=== PATIENT | female | born 1965 ===

== ENCOUNTER 2024-12-11 12:04 | Emergency (ER) | payer MEDICAID, SELFPAY ==
--- NOTE | ~2024-12-11 | XR_ITS ---
EXAMINATION: XR CHEST CLINICAL INFORMATION: Pneumonia? Coughing COMPARISON: None available. TECHNIQUE: PA view of the chest was obtained. FINDINGS: The cardiac, hilar, and mediastinal contours are normal. The lungs are clear bilaterally. No pneumothorax or effusion. No focal osseous or soft tissue abnormality. XR/XR chest 1V IMPRESSION: No active pulmonary disease. Electronically signed by: Rafael Coates MD 12/11/2024 01:46 PM EDT
[2024-12-11 13:05] VITALS: BP 137/72; PULSE 100; RESP 18; TEMP 37; O2SAT 99; BMI 28.8
--- NOTE | 2024-12-11 13:15 | ECG_ITS ---
Test Reason : SOB Blood Pressure : */* mmHG Vent. Rate : 96 BPM Atrial Rate : 96 BPM P-R Int : 148 ms QRS Dur : 72 ms QT Int : 360 ms P-R-T Axes : 45 44 32 degrees QTcB Int : 454 ms Normal sinus rhythm Nonspecific ST abnormality Abnormal ECG No previous ECGs available Referred By: Scott Lucas Electronically Signed By: DOMINIC ALEXANDRE MD
--- NOTE | 2024-12-11 13:16 | ED.GENADULT ---
HPI - General Adult General Chief complaint: Upper Respiratory Symptoms Stated complaint: SOB, asthma Time Seen by Provider: 12/11/24 14:30 Source: patient Mode of arrival: ambulatory Limitations: no limitations History of Present Illness ED Provider: nahid Lucas [facility] narrative: 59 yold female with pmh of asthma presents to the ED for coughing brown green phelghm, bodyaches, chills, sore throat, and wheezing. patient denies any chest pain. Related Data Previous Rx's ?Medication ?Instructions ?Recorded albuterol sulfate 90 mcg/actuation 2 puff inhalation Q4-6H PRN 12/11/24 aerosol inhaler (Ventolin HFA) shortness of breath or wheezing #8.5 grams azithromycin 250 mg tablet See Rx Instructions PO .COMPLEX #6 12/11/24 tabs benzonatate 200 mg capsule 200 mg PO TID PRN cough #15 caps 12/11/24 prednisone 20 mg tablet 40 mg (2 x 20 mg) PO DAILY 5 days 12/11/24 #10 tabs Allergies Allergy/AdvReac Type Severity Reaction Status Date / Time No Known Allergies Allergy Verified 12/11/24 13:11 Review of Systems Review of Systems: coughing, sore thoat, chills, wheezing, green/brown pleghm Yes all other systems are reviewed and are negative PMFSH Social History Social History Advance Directives: No Advance Directives Information Provided: No Physical Exam ED Vital Signs: Vital Signs - 24 hr 12/11/24 13:05 Temperature 98.6 F Pulse Rate 100 Respiratory Rate 18 Blood Pressure 137/72 Pulse Oximetry 99 Oxygen Delivery Method Room Air BMI result Body Mass Index 28.8 Const General: cooperative, healthy appearing, comfortable, no acute distress, well developed, alert, awake and Physically active Orientation/consciousness: patient oriented x3 HENMT Head: Yes normal to inspection, Yes No palpable skull fracture present, Yes normocephalic and Yes atraumatic Ears: hearing grossly normal bilaterally, external ears normal, TM's normal bilaterally, TM normal on the right, TM normal on the left, EAC's normal, mastoids normal and no periauricular adenopathy Throat: Yes posterior oropharynx normal, Yes tonsils normal and Yes uvula midline Eyes General: appearance normal, both eyes and all related structures Neck Neck: Yes normal visual inspection, Yes full ROM, Yes no lymphadenopathy, Yes no meningeal signs, Yes trachea midline, Yes supple, No anterior neck swelling and No tender Chest Chest palpation & inspection: normal inspection of the chest and normal palpation of entire chest wall Resp Effort & Inspection: normal respiratory effort and able to speak in complete sentences Auscultation: wheezes expiratory wheezes Cardio Jugular venous distension: no JVD Heart sounds: S1 normal heart sound present and S2 normal heart sound present GI Inspection: Yes normal to inspection Palpation (GI): Soft to palpation, not firm, nontender and no guarding General: Yes no CVA tenderness Back/Spine/Pelvis Back: no CVA tenderness and No back tenderness Skin General skin exam: no rashes or lesions noted, elasticity normal and turgor normal Neuro General: patient oriented x3, gait normal, tone normal, moves all extremities, Normal light touch and pain sensation, no meningeal signs, no focal motor deficits and CN's II-XI intact bilaterally Extrem General: Yes normal to inspection, Yes full ROM and Yes capillary refill normal Psych Appearance: grossly normal, well kempt and not disheveled Course Course Course Narrative: RME: 59-year-old female history of asthma and hypertension presents to ED for coughing and shortness of breath. Patient has been using her neighbor albuterol nebulizer for treatment. Patient denies any leg swelling, pitting edema or calf tenderness. Patient denies any pleurisy. EKG labs x-ray ordered Medical Decision Making Medical Decision Making [facility] Narrative: 59-year-old female presents to ED for asthma exacerbation presents to ED for coughing, green brown phlegm for the past couple of days. Patient has been using her friend dual neb for relief which has helped. Patient denies any leg swelling, calf pain, coughing up blood or pleurisy. EKG nondiagnostic. Negative for signs of heart failure. Not suspecting PE. Not suspecting pericarditis, myocarditis, aortic dissection, CHF, or any other life threatening etiology. We will be treated with albuterol inhaler steroid and antibiotics. Patient explained worrisome signs informed return to the ED immediately Differential Diagnosis Differential Diagnoses: The differential diagnosis associated with the presentation includes (Asthma, pneumonia,) Admission/Observation Consideration of admission/observation: Escalation of care including admission/observation considered Lab Data [facility] Lab Attestation statement: I reviewed the patient's lab results. 12/11/24 13:25 12/11/24 13:25 Labs: Lab Results 12/11/24 Range/Units 13:25 WBC 8.1 (4.8-10.8) X10*3/uL RBC 4.39 (4.20-5.50) X10*6/uL Hgb 13.1 (12.0-16.0) g/dl Hct 39.2 (37.0-47.0) % MCV 89.3 (80.0-98.0) fL MCH 29.8 (27.0-33.0) pg MCHC 33.4 (31.0-35.0) g/dl RDW 13.1 (11.0-16.0) % Plt Count 294 (160-400) X10*3/uL MPV 10.4 (9.4-12.3) fL Immature Gran % (Auto) 0.4 (0.0-0.4) % Neut % (Auto) 66.6 (45-73) % Lymph % (Auto) 19.3 L (20-40) % [place] % (Auto) 11.1 H (2-11) % Eos % (Auto) 1.9 (0-4) % Baso % (Auto) 0.7 (0-2) % Lymph # (Auto) 1.6 (1.2-4.9) X10*3/uL [place] # (Auto) 0.9 (0.1-1.2) X10*3/uL Eos # (Auto) 0.2 (0.0-0.4) X10*3/uL Baso # (Auto) 0.1 (0.0-0.2) X10*3/uL Abs Immat Gran (auto) 0.03 (0.00-0.03) X10*3/uL Absolute Neuts (auto) 5.4 (2.0-8.3) x10*3/uL Absolute Nucleated RBC 0.000 (0.0-0.012) X10*3/uL Nucleated RBC % (auto) 0.0 (0.0-0.2) /100WBC Sodium 145 (135-145) mmol/L Potassium 3.7 (3.3-5.1) mmol/L Chloride 111 H (96-108) mmol/L Carbon Dioxide 27 (22-29) mmol/L Anion Gap 11 L (12-20) BUN 15 (9-16) mg/dL Creatinine 0.80 (0.5-1.4) mg/dL Estim Creat Clear Calc 83.1 Estimated GFR > 60 Random Glucose 109 (60-115) mg/dL Calcium 9.5 (8.4-10.2) mg/dL Total Bilirubin 0.5 (0.0-1.0) mg/dL AST 18 (5-31) U/L ALT 12 (0-31) U/L Alkaline Phosphatase 108 (39-117) U/L Troponin I High Sens 4.4 (<3.5-17.0) ng/L NT-Pro-B Natriuret Pep 24.0 (<300) pg/mL Total Protein 7.6 (6.5-8.0) g/dL Albumin 4.2 (3.5-5.0) g/dL COVID-19 (JENNIFER) Negative (Negative) COVID-19 Clin Com See Note Influenza Type A (JULIETA) Negative (Negative) Influenza Type B (JULIETA) Negative (Negative) Influenza A & B Note See Note S. pyogenes GrpA JULIETA Negative (Negative) Independent Interpretation I performed an independent interpretation of an: EKG (Nondiagnostic) Independent Historian Clinical information obtained from an independent historian. History obtained from or confirmed by: Other (Patient) Prescription Management I considered prescription management with: Antibiotic and Other (Albuterol prednisone) Discharge Plan Discharge Clinical Impression: Upper respiratory infection, Asthma Patient Disposition: Home, Self-Care Instructions: Asthma (ED), Upper Respiratory Infection (ED) Additional Instructions: Your EKG labs chest x-ray came back reassuring. You will be discharged with medication to help with your asthma. Return to the ED immediately for any chest pain, coughing up blood, weakness, dizziness, leg swelling, calf pain, chest pain on inspiration, or any other concerning symptoms. Prescriptions: New prednisone 20 mg tablet 40 mg PO DAILY 5 Days Qty: 10 0RF benzonatate 200 mg capsule 200 mg PO TID PRN (Reason: cough) Qty: 15 0RF azithromycin 250 mg tablet See Rx Instructions .ROUTE .COMPLEX Qty: 6 0RF Rx Instructions: For 250 mg dose pack: take 500 mg today (day 1), then 250 mg for 4 days (days 2-5) albuterol sulfate [Ventolin HFA] 90 mcg/actuation HFA aerosol inhaler 2 puff inhalation Q4-6H PRN (Reason: shortness of breath or wheezing) Qty: 8.5 0RF Interventions: ED Discharge Assessment Last Done: 12/11/24 15:24 Discharge Date/Time: 12/11/24 15:24 Print Language: Chinese
[2024-12-11 13:30] LABS: MANUAL DIFF FLAG NO
[2024-12-11 13:33] LABS: Hematocrit 39.2 % (37.0-47.0); Hemoglobin 13.1 g/dl (12.0-16.0); Imm Gran Abs Auto 0.03 X10*3/uL (0.00-0.03); Imm Gran Pct Auto 0.4 % (0.0-0.4); Lymphocytes Absolute Auto 1.6 X10*3/uL (1.2-4.9); Mean Corpuscular HGB Conc 33.4 g/dl (31.0-35.0); Mean Corpuscular Hemoglobin 29.8 pg (27.0-33.0); Mean Corpuscular Volume 89.3 fL (80.0-98.0); NRBC Abs Auto 0.000 X10*3/uL (0.0-0.012); NRBC Pct Auto 0.0 /100WBC (0.0-0.2); Platelet Count 294 X10*3/uL (160-400); Red Blood Count 4.39 X10*6/uL (4.20-5.50); White Blood Count 8.1 X10*3/uL (4.8-10.8)
[2024-12-11 13:40] LABS: IDNOW Serial# 08D9AD1C; Strep A Nucleic Acid Negative (Negative)
[2024-12-11 13:49] LABS: IDNOW Serial# 58CA691E; Influenza B2 Negative (Negative)
[2024-12-11 13:50] LABS: Alanine Aminotransferase 12 U/L (0-31); Albumin Level 4.2 g/dL (3.5-5.0); Alkaline Phosphatase 108 U/L (39-117); Anion Gap 11 (12-20); Aspartate Amino Transferase 18 U/L (5-31); Blood Urea Nitrogen 15 mg/dL (9-16); Calcium 9.5 mg/dL (8.4-10.2); Carbon Dioxide 27 mmol/L (22-29); Chloride 111 mmol/L (96-108); Creatinine Clr Calc Pharmacy 83.1; Estimated Glomerular Filt Rate > 60; Potassium 3.7 mmol/L (3.3-5.1); Sodium 145 mmol/L (135-145); Total Protein 7.6 g/dL (6.5-8.0)
[2024-12-11 13:52] LABS: NT Pro B Type Natriuretic Pept 24.0 pg/mL (<300); Troponin-I High Sensitivity 4.4 ng/L (<3.5-17.0)
[2024-12-11 14:03] LABS: COVID-19 Test Negative (Negative); IDNOW Serial# 6674DD1D
[2024-12-11 15:24] VITALS: BP 137/72; PULSE 100; RESP 18; TEMP 37; O2SAT 99
--- OUTSIDE RECORDS SUMMARY | 2024-12-11 18:08 | XMS_ITS | Clinical Summary ---
Author Organization [employer] [facility] ity Address [address] [place] [address] Care Team Providers Care Trade Show Manager Name Role Phone Rupert Man Primary Care Provider [phone] Social History Tobacco Use Types Packs/Day Years Used Date Smoking Tobacco: Never Assessed Comments Unknown Sex and Gender Information Value Date Recorded Sex Assigned at Not on file Legal Sex Female 5:07 AM EST Gender Identity Not on file Sexual Orientation Not on file Plan of Treatment Health Maintenance Due Date Last Done Comments Colorectal Cancer Screening: Colonoscopy 1967 DTaP,Tdap,and Td Vaccines (1 - Tdap) 1986 Hepatitis B Vaccines (1 of 3 - 19+ 3-dose series) 1986 Cervical Cancer Screening: P ap Smear 1988 Pneumococcal Vaccine: 50+ Ye ars (1 of 1 - PCV) 2017 Zoster Vaccines (1 of 2) 2017 HIV Screening 10/04/2023 Hepatitis C Screening 10/04/2023 Social Influencers of Health Screening 10/04/2023 Depression Screening 03/07/2024 COVID-19 Vaccine (1 - 2023-2 5 season) 2024 Influenza Vaccine (#1) 2024 Breast Cancer Screening 06/29/2025 06/30/2023 RSV Immunization Adult Patie nts (1 - 1-dose 75+ series) 2042 HIB Vaccines Aged Out No longer eligi ble based on patient's age to complete this topic HPV Vaccines Aged Out No longer eligi ble based on patient's age to complete this topic Hepatitis A Vaccines Aged Out No long er eligible based on patient's age to complete this topic IPV Vaccines Aged Out No longer eligi ble based on patient's age to complete this topic MMR Vaccines Aged Out No longer eligi ble based on patient's age to complete this topic Meningococcal ACWY Vaccine Aged Out N o longer eligible based on patient's age to complete this topic Meningococcal B Vaccine Aged Out No l onger eligible based on patient's age to complete this topic RSV Immunization Patients Un rosalio 20 months Aged Out No longer eligible b ased on patient's age to complete this topic Varicella Vaccines Aged Out No longer eligible based on patient's age to complete this topic Procedures Procedure Name Priority Date/Time Associated Diagnosis Comments [facility] SCREEN[facility] Routine 06/30/2023 8:11 AM EDT Encounter for screening mammogram for malignant neoplasm of breast from Last 3 Months or Most Recently Relevant to Health Maintenance Results * [facility] SCRE[facility] (06/30/2023 8:11 AM EDT) Anatomical Region Laterality Modality Mammography 06/29/2023 1:37 PM EDT Narrative 06/30/2023 8:11 AM EDT [facility] Diagnostic Imaging Department [address] [place] [address] Patient: DAYNA MACHADO/Age/Sex: 1965 - 58 - F Unit#: [id number] Location/Status: SPDIMAM/REG CLI Mnemonic/Ordering Site: [facility] Ordering Physician: RUPERT MAN [facility] Screening Digital - 06/29/23 - 1416 Report Status:Signed EXAM: [facility] Screening Digital EXAM DATE AND TIME: 06/29/2023 2:19 PM HISTORY: Screening. Baseline exam. COMPARISON: No comparison imaging. TECHNIQUE: Bilateral digital breast tomosynthesis was performed in the CC and MLO projections. Computer aided detection with [employer] 3D 3.1 was employed. TISSUE DENSITY: b. There are scattered areas of fibroglandular density. FINDINGS: An 8 mm circumscribed nodule is seen in the posterior 9:00 position of the right breast, expected to lie approximately 10 to 12 cm from the nipple, possibly a lymph node. There is a similar 4 mm circumscribed nodule in the posterior 3:00 position of the left breast, expected to lie approximately 10 to 12 cm from the nipple. Targeted ultrasound is recommended for further assessment. No grouped microcalcifications or areas of architectural distortion are seen. The skin and vascularity are unremarkable. IMPRESSION: Bilateral breast nodules, possibly lymph nodes, for which targeted ultrasound is recommended. The patient will be called back. BI-RADS: Category 0: Incomplete - Need Additional Imaging Evaluation RECOMMENDATION(S): 1: Ultrasound follow-up BILATERAL Dictating Physician: SETWART JUARES MD Electronically Signed by: STEWART JUARES MD Dic Date/Time: 06/30/23809 Sign date/Time: 06/30/23810 Procedure Note Stewart Juares MD - 10/24/2023 [facility] Diagnostic Imaging Department [address] [place] [address] Patient: DANDY PINEDADAYNA/Age/Sex: 1965 - 58 - F Unit#: [id number] Location/Status: [facility]/REG CLI Mnemonic/Ordering Site: [facility] Ordering Physician: RUPERT MAN [facility] Screening Digital - 06/29/23 - 1416 Report Status:Signed EXAM: [facility] Screening Digital EXAM DATE AND TIME: 06/29/2023 2:19 PM HISTORY: Screening. Baseline exam. COMPARISON: No comparison imaging. TECHNIQUE: Bilateral digital breast tomosynthesis was performed in the CCand MLO projections. Computer aided detection with [employer] 3D 3.1was employed. TISSUE DENSITY: b. There are scattered areas of fibroglandular density. FINDINGS: An 8 mm circumscribed nodule is seen in the posterior 9:00 position ofthe right breast, expected to lie approximately 10 to 12 cm from the nipple, possibly a lymph node. There is a similar 4 mm circumscribed nodule inthe posterior 3:00 position of the left breast, expected to lie [id number] to 12 cm from the nipple. Targeted ultrasound is recommended for further assessment. No grouped microcalcifications or areas of architectural distortion areseen. The skin and vascularity are unremarkable. IMPRESSION: Bilateral breast nodules, possibly lymph nodes, for which targetedultrasound is recommended. The patient will be called back. BI-RADS: Category 0: Incomplete - Need Additional Imaging Evaluation RECOMMENDATION(S): 1: Ultrasound follow-up BILATERAL Dictating Physician: STEWART JUARES MD Electronically Signed by: STEWART JUARES MD Dic Date/Time: 06/30/23809 Sign date/Time: 06/30/23 0811 Rupert MILLAN IMG BI PROCEDURES Final Result from Last 3 Months or Most Recently Relevant to Health Maintenance Care Teams Trade Show Manager Relationship Specialty Start Date End Date Rupert Man PA [address] [place] [address] PCP - General 06/21/23
--- OUTSIDE RECORDS SUMMARY | 2024-12-11 18:08 | XMS_ITS | Clinical Summary ---
Author Organization [employer] [facility] Address [address] [place] [address] Care Team Providers Care Facility Practice Specialist Name Role Phone Unavailable Primary Care Provider Unavailabl e Encounters Date Type Department Care Team Description 09/25/2024 Population Health Risk Score [facility] Department [address] [place] [id number] Provider, Population Health Generic from Last 3 Months Social History Tobacco Use Types Packs/Day Years Used Date Smoking Tobacco: Never Assessed Comments Unknown Sex and Gender Information Value Date Recorded Sex Assigned at Not on file Legal Sex Female 9:26 PM EDT Gender Identity Not on file Sexual Orientation Not on file Plan of Treatment Health Maintenance Due Date Last Done Comments CT Colonography 1967 Colonoscopy 1967 Colorectal Cancer Screening 1967 Depression Screening 1967 FIT DNA/Cologuard 1967 FIT 1967 FOBT 1967 Lipid Panel 1967 SDOH Screening 1967 Sigmoidoscopy 1967 Disability Screening 1967 Alcohol/Substance Use Screening 1979 Tobacco Screening 1979 Hepatitis C Screening 1985 Pap Smear 1988 Cervical Cancer Screening 1997 HPV/Cotest 1997 Mammogram 2007 Zoster Vaccines (1 of 2) 2017 COVID-19 Vaccine (1 - 2023-2 5 season) 2024 Influenza Vaccine (#1) 2024 11/22/2023 Hepatitis B Vaccines (2 of 2 - CpG 2-dose series) 12/19/2024 11/21/2024 DTaP/Tdap/Td Vaccines (2 - T d or Tdap) 11/21/2033 11/22/2023 RSV Patients and Patients Aged 60 years or older (1 - 1-dose 75+ series) 2042 HIV Screening Completed 06/09/2023, 06/09/2023 Pneumococcal Vaccine: 50+ Years Completed 11/22/2023 HIB Vaccines Aged Out No longer eligi [...] patient's age to complete this topic Meningococcal Vaccine Aged Out No fracisco abhishek eligible based on patient's age to complete this topic RSV under 20 months Aged Out No longe r eligible based on patient's age to complete this topic Rotavirus Vaccines Aged Out No longer eligible based on patient's age to complete this topic
== END 2024-12-11 15:24 | disposition home or self-care (01) ==
LOC: HO.ED 14:51
PROVIDERS: Physician Assistant; Emergency Provider Emergency Medicine
DX: J06.9 Acute upper respiratory infection, unspecified (principal); J45.909 Unspecified asthma, uncomplicated; R06.02 Shortness of breath; R05.9 Cough, unspecified; M79.10 Myalgia, unspecified site; J02.9 Acute pharyngitis, unspecified; Z11.52 Encounter for screening for COVID-19; Z79.899 Other long term (current) drug therapy
CPT/HCPCS: 36415; 71045; 80053; 83880; 84484; 85025; 87502; 87635; 87651; 93005; 99283

== ENCOUNTER → 2024-12-11 13:11 | Outpatient (BNV) | payer MEDICAID, SELFPAY | PROVIDERS: Visit Provider Radiology Diagnostic Radiology | DX: R05.9 Cough, unspecified (principal) | CPT/HCPCS: 71045 ==

== ENCOUNTER → 2024-12-11 13:15 | Outpatient (BNV) | payer MEDICAID, SELFPAY | PROVIDERS: Emergency Provider Emergency Medicine; Visit Provider Internal Medicine Cardiovascular Disease | DX: R94.31 Abnormal electrocardiogram [ECG] [EKG] (principal); R06.02 Shortness of breath | CPT/HCPCS: 93010 ==